=== PATIENT | female | born 1945 | race Caucasian/White ===

== ENCOUNTER 2019-06-07 16:23 | Observation (INO) | payer MEDICARE ==
--- NOTE | 2019-06-07 17:12 | Emergency Department Record ---
History of Present Illness - General Chief Complaint: General Stated Complaint: LOW POTASSIUM Time Seen by Provider: 06/07/19 16:34 Source: Patient Mode of Arrival: Ambulatory Limitations: No limitations - History of Present Illness Initial comments: pt was called by drs office because she had a potassium of 2.9 . she was told to come to the ed. she took potassium before she came. she has no symptoms -: Hour(s) Consistency: Constant Associated Symptoms: Denies other symptoms - [place] Coma Scale Eye Response: (4) Open spontaneously Motor Response: (6) Obeys commands Verbal Response: (5) Oriented [place] Total: 15 - Related Data Home Medications Medication Instructions Recorded Confirmed Last Taken Amlodipine Besylate 5 mg PO DAILY 06/07/19 06/07/19 06/07/19 Calcium Carbonate/Vitamin D3 1 each PO DAILY 06/07/19 06/07/19 06/07/19 [Caltrate 600 Plus D3 Tablet] Ergocalciferol (Vitamin D2) 50,000 unit PO WEEKLY 06/07/19 06/07/19 06/07/19 [Vitamin D2] Hydrochlorothiazide [Hctz] 25 mg PO DAILY 06/07/19 06/07/19 06/07/19 Loratadine 10 mg PO DAILY 06/07/19 06/07/19 06/07/19 Multivitamin/Iron/Folic Acid 1 tab PO DAILY 06/07/19 06/07/19 06/07/19 [Centrum] Potassium Chloride [Klor-Con] 20 meq PO DAILY 06/07/19 06/07/19 06/07/19 Allergies Allergy/AdvReac Type Severity Reaction Status Date / Time lisinopril AdvReac HYPERSENSIT Verified 06/07/19 16:39 IVITY Travel Screening - Travel/Exposure Within Last 30 Days Have you traveled within the last 30 days?: No - Travel/Exposure Within Last Year Have you traveled outside the [place] in the last year?: No - Additonal Travel Details Have you been exposed to anyone with a communicable illness?: No Review of Systems Reviewed: No additional complaints except as noted below Constitutional: Reports: As per HPI. Denies: Chills, Fever, Malaise, Night sweats, Weakness, Weight change Eyes: Reports: As per HPI. Denies: Eye discharge, Eye pain, Photophobia, Vision change ENT: Reports: As per HPI. Denies: Congestion, Dental pain, Ear pain, Epistaxis, Hearing loss, Throat pain Respiratory: Reports: As per HPI. Denies: Cough, Dyspnea, Hemoptysis, Stridor, Wheezes Cardiovascular: Reports: As per HPI. Denies: Arrhythmia, Chest pain, Dyspnea on exertion, Edema, Murmurs, Orthopnea, Palpitations, Paroxysmal nocturnal dyspnea, Rheumatic Fever, Syncope Endocrine: Reports: As per HPI. Denies: Fatigue, Heat or cold intolerance, Polydipsia, Polyuria Gastrointestinal: Reports: As per HPI. Denies: Abdominal pain, Constipation, Diarrhea, Hematemesis, Hematochezia, Melena, Nausea, Vomiting Genitourinary: Reports: As per HPI. Denies: Abnormal menses, Discharge, Dyspareunia, Dysuria, Frequency, Hematuria, Incontinence, Retention, Urgency Musculoskeletal: Reports: As per HPI. Denies: Arthralgia, Back pain, Gout, Joint swelling, Myalgia, Neck pain Skin: Reports: As per HPI. Denies: Bruising, Change in color, Change in hair/nails, Lesions, Pruritus, Rash Neurological: Reports: As per HPI. Denies: Abnormal gait, Confusion, Headache, Numbness, Paresthesias, Seizure, Tingling, Tremors, Vertigo, Weakness Psychiatric: Reports: As per HPI. Denies: Anxiety, Auditory hallucinations, Depression, Homicidal thoughts, Suicidal thoughts, Visual hallucinations Hematological/Lymphatic: Reports: As per HPI. Denies: Anemia, Blood Clots, Easy bleeding, Easy bruising, Swollen glands Past Medical History - SOCIAL HISTORY Smoking Status: Former smoker Alcohol Use: Occasional Alcohol Use Comment: daily 3 glasses wine Drug Use: None - RESPIRATORY Hx Respiratory Disorders: No - CARDIOVASCULAR Hx Cardio Disorders: Yes Hx Hypertension: Yes - NEURO Hx Neuro Disorders: No - GI Hx GI Disorders: No - Hx Genitourinary Disorders: No - ENDOCRINE Hx Endocrine Disorders: No - MUSCULOSKELETAL Hx Musculoskeletal Disorders: No - PSYCH Hx Psych Problems: No - HEMATOLOGY/ONCOLOGY Hx Hematology/Oncology Disorders: No Family Medical History Any Significant Family History?: No Physical Exam - General General Appearance: Alert, Oriented x3, Cooperative, No acute distress - Head Head exam: Normal inspection - Eye Eye exam: Normal appearance, PERRL, EOMI Pupils: Normal accommodation - ENT ENT exam: Normal exam, Mucous membranes moist, Normal external ear exam, Normal orophraynx Ear exam: Normal external inspection. negative: External canal tenderness Nasal Exam: Normal inspection. negative: Discharge, Sinus tenderness Mouth exam: Normal external inspection, Tongue normal Teeth exam: Normal inspection. negative: Dental caries Throat exam: Normal inspection. negative: Tonsillar erythema, Tonsillar exudate - Neck Neck exam: Normal inspection, Full ROM. negative: Tenderness - Respiratory Respiratory exam: Normal lung sounds bilaterally. negative: Respiratory distress - Cardiovascular Cardiovascular Exam: Normal rhythm, Normal heart sounds, Tachycardia - GI/Abdominal GI/Abdominal exam: Soft, Normal bowel sounds. negative: Tenderness - Rectal Rectal exam: Deferred - exam: Deferred - Extremities Extremities exam: Normal inspection, Full ROM, Normal capillary refill. negative: Tenderness - Back Back exam: Reports: Normal inspection, Full ROM. Denies: Muscle spasm, Rash noted, Tenderness - Neurological Neurological exam: Alert, CN II-XII intact, Normal gait, Oriented X3 - Psychiatric Psychiatric exam: Normal affect, Normal mood - Skin Skin exam: Dry, Intact, Normal color, Warm Course Vital Signs 06/07/19 16:29 Temperature 98.1 F Pulse Rate 109 H Respiratory 20 Rate Blood Pressure 173/91 Pulse Ox 99 Medical Decision Making - Lab Data Result diagrams: 06/07/19 17:01 Disposition Disposition: Admit Clinical Impression: Hypokalemia Disposition: Still a Patient at [facility] Decision to Admit: Admit from ER Decision to Admit Date: 06/07/19 Decision to Admit Time: 17:57 Forms: Patient Portal Access Quality - Quality Measures Quality Measures: N/A - Blood Pressure Screening Does Patient Have Any of the Following: Active Dx of HTN Blood Pressure Classification: Hypertensive Reading Systolic Measurement: 173 Diastolic Measurement: 91 Screening for High Blood Pressure: Patient Exclusion, Hx of HTN [G9744]
[2019-06-07 17:20] LABS: BLOOD UREA NITROGEN 3 mg/dL (8-23); CREATININE 0.4 mg/dL (0.5-0.9); EST GLOMERULAR FILTRATION RATE > 60 mL/min
[2019-06-07 17:23] LABS: GLUCOSE,RANDOM 206 mg/dL (74-109)
[2019-06-07] MEDS ORDERED: SOD CHLOR 0.9% WITH KCL 40MEQ 40 MEQ/1,000 ML IV.SOLN IV ONE (17:30)
[2019-06-07] MEDS ORDERED: POTASSIUM CHLORIDE 20 MEQ TABLET PO ONE (17:33)
[2019-06-07] MEDS ORDERED: POTASSIUM CHLORIDE 20 MEQ/15ML CUP PO ONE (17:52)
[2019-06-07] MEDS ORDERED: ACETAMINOPHEN 500 MG TABLET PO PRN (18:25)
[2019-06-07] MEDS ORDERED: FLU VAC QS 2019-20 (INPT, 6MO+) 60MCG/0.5ML IM ONE (18:36)
[2019-06-07] MEDS ORDERED: POTASSIUM CHLORIDE 20 MEQ TABLET PO SCH (22:00)
[2019-06-08] MEDS: SOD CHLOR 0.9% WITH KCL 40MEQ 40 MEQ/1,000 ML IV.SOLN IV SCH ×2 (00:05→05:48)
[2019-06-08 06:49] LABS: BLOOD UREA NITROGEN 2 mg/dL (8-23); CREATININE 0.3 mg/dL (0.5-0.9); EST GLOMERULAR FILTRATION RATE > 60 mL/min; GLUCOSE,RANDOM 100 mg/dL (74-109)
[2019-06-08] MEDS ORDERED: HYDROCHLOROTHIAZIDE 25 MG TABLET PO SCH (10:00)
[2019-06-08] MEDS ORDERED: LORATADINE 10 MG TABLET PO SCH (10:00)
[2019-06-08] MEDS ORDERED: AMLODIPINE BESYLATE 5MG TAB PO SCH (10:00)
--- NOTE | 2019-06-08 11:10 | History & Physical ---
History of Present Illness - Date of Service Date of Service for History & Physical: 06/08/19 - History of Present Illness Admitting Diagnosis: hypokalemia History of Present Illness: 73 yo female presents for hypokalemia secondary to HCTZ. Pt was sent in by PCP for 2.8 K and pt took PO supplement before arrival. Repeat K was 2.5. Pt denied "symptoms" per ER documentation. PMH chronic ankle swelling and HTN. Pt given 40 mEq PO K and infusion of NS/40mEq 1 L. Tele strip at 8pm shows NSR, narrow QRS complex but no peaking T waves. 06/08/19 Pt resting comfortably in chair. Denies CP, shortness of breath, irregular HR/palpations, leg cramps, or tingling. Has tolerated IV infusions, IV site appears PWN, no pain with palpation. Pt is A&ox4. Reports being on HCTZ for approx 1 yr, recent issues with low K and taking 20mEq K for a few months. +2 pitting edema noted to lower calf/ankles but not feet. +3 DP/PT pulses. POC stop HCTZ, stop IVF, repeat K at 1200, take 20mEq K BID x 3 days and then daily after that. Repeat BMP 06/12/19 and PCP follow up within 7 days of d/c. PCP Jeanette Travel Screening - Travel/Exposure Within Last 30 Days Have you traveled within the last 30 days?: No - Travel/Exposure Within Last Year Have you traveled outside the [place] in the last year?: No - Additonal Travel Details Have you been exposed to anyone with a communicable illness?: No - Travel Symptoms Symptom Screening: None Review of Systems Constitutional: Reports: As per HPI. Denies: Chills, Fever, Malaise, Night sweats, Weakness, Weight change Eyes: Reports: As per HPI. Denies: Eye discharge, Eye pain, Photophobia, Vision change ENT: Reports: As per HPI. Denies: Congestion, Dental pain, Ear pain, Epistaxis, Hearing loss, Throat pain Respiratory: Reports: As per HPI. Denies: Cough, Dyspnea, Hemoptysis, Stridor, Wheezes Cardiovascular: Reports: As per HPI. Denies: Arrhythmia, Chest pain, Dyspnea on exertion, Edema, Murmurs, Orthopnea, Palpitations, Paroxysmal nocturnal dyspnea, Rheumatic Fever, Syncope Endocrine: Reports: As per HPI. Denies: Fatigue, Heat or cold intolerance, Polydipsia, Polyuria Gastrointestinal: Reports: As per HPI. Denies: Abdominal pain, Constipation, Diarrhea, Hematemesis, Hematochezia, Melena, Nausea, Vomiting Genitourinary: Reports: As per HPI. Denies: Abnormal menses, Discharge, Dyspareunia, Dysuria, Frequency, Hematuria, Incontinence, Retention, Urgency Musculoskeletal: Reports: As per HPI. Denies: Arthralgia, Back pain, Gout, Joint swelling, Myalgia, Neck pain Skin: Reports: As per HPI. Denies: Bruising, Change in color, Change in hair/nails, Lesions, Pruritus, Rash Neurological: Reports: As per HPI. Denies: Abnormal gait, Confusion, Headache, Numbness, Paresthesias, Seizure, Tingling, Tremors, Vertigo, Weakness Psychiatric: Reports: As per HPI. Denies: Anxiety, Auditory hallucinations, De pression, Homicidal thoughts, Suicidal thoughts, Visual hallucinations Hematological/Lymphatic: Reports: As per HPI. Denies: Anemia, Blood Clots, Easy bleeding, Easy bruising, Swollen glands Past Medical History - SOCIAL HISTORY Smoking Status: Former smoker Alcohol Use Comment: 3 glasses wine daily Drug Use: None - RESPIRATORY Hx Respiratory Disorders: No - CARDIOVASCULAR Hx Cardio Disorders: Yes Hx Hypertension: Yes - NEURO Hx Neuro Disorders: No - GI Hx GI Disorders: No - Hx Genitourinary Disorders: No - ENDOCRINE Hx Endocrine Disorders: No - MUSCULOSKELETAL Hx Musculoskeletal Disorders: No - PSYCH Hx Psych Problems: No - HEMATOLOGY/ONCOLOGY Hx Hematology/Oncology Disorders: No Family Medical History Any Significant Family History?: Yes Hx Cancer: Mother H&P Meds/Allergies - Allergies Allergies: Allergies Allergy/AdvReac Type Severity Reaction Status Date / Time lisinopril AdvReac HYPERSENSIT Verified 06/07/19 16:39 IVITY - Home Medications Home Medications Medication Instructions Recorded Confirmed Last Taken Amlodipine Besylate 5 mg PO DAILY 06/07/19 06/07/19 06/07/19 Calcium Carbonate/Vitamin D3 1 each PO DAILY 06/07/19 06/07/19 06/07/19 [Caltrate 600 Plus D3 Tablet] Ergocalciferol (Vitamin D2) 50,000 unit PO WEEKLY 06/07/19 06/07/1906/07/19 [Vitamin D2] Hydrochlorothiazide [Hctz] 25 mg PO DAILY 06/07/19 06/07/19 06/07/19 Loratadine 10 mg PO DAILY 06/07/19 06/07/19 06/07/19 Multivitamin/Iron/Folic Acid 1 tab PO DAILY 06/07/19 06/07/19 06/07/19 [Centrum] Potassium Chloride [Klor-Con] 20 meq PO DAILY 06/07/19 06/07/19 06/07/19 - Active Medications Active Medications: Current Medications Acetaminophen (Tylenol 500mg Tab) 1,000 mg PO Q6H PRN PRN Reason: PAIN - MILD(1-4)/FEVER Amlodipine Besylate (Norvasc) 5 mg PO DAILY [facility] Last Admin: 06/08/19 10:21 Dose: 5 mg Documented by: Potassium Chloride/Sodium Chloride (Potassium Chl 40meq/) 40 meq in 1,000 mls @ 100 mls/hr IV Q10H [facility] Last Infusion: 06/08/19 10:18 Dose: Infused Documented by: Loratadine (Claritin) 10 mg PO DAILY [facility] Last Admin: 06/08/19 10:21 Dose: 10 mg Documented by: Physical Exam - Vital Signs Vital Signs: Vital Signs - Last 24 Hrs Temp Pulse Pulse Resp BP BP BP 06/08/19 08:52 18 06/08/19 07:18 98.3 F 82 18 140/78 06/08/19 04:00 98.0 F 85 18 124/77 06/08/19 00:25 97.8 F 81 18 116/72 06/07/19 20:32 16 06/07/19 20:25 97.6 F 88 18 137/79 06/07/19 18:45 16 06/07/19 18:33 97 H 18 145/90 06/07/19 18:25 97.5 F L 101 H 18 150/83 06/07/19 18:00 101 H 18 162/91 06/07/19 16:29 98.1 F 109 H 20 173/91 Pulse Ox 06/08/19 08:52 06/08/19 07:18 98 06/08/19 04:00 97 06/08/19 00:25 98 06/07/19 20:32 06/07/19 20:25 99 06/07/19 18:45 06/07/19 18:33 100 06/07/19 18:25 100 06/07/19 18:00 100 06/07/19 16:29 99 - General General Appearance: Alert, Oriented x3, Cooperative, No acute distress Limitations: No limitations - Head Head exam: Normal inspection - Eye Eye exam: Normal appearance, PERRL, EOMI Pupils: Normal accommodation - ENT ENT exam: Normal exam, Mucous membranes moist, Normal external ear exam, Normal orophraynx Ear exam: Normal external inspection. negative: External canal tenderness Nasal Exam: Normal inspection. negative: Discharge, Sinus tenderness Mouth exam: Normal external inspection, Tongue normal Teeth exam: Normal inspection. negative: Dental caries Throat exam: Normal inspection. negative: Tonsillar erythema, Tonsillar exudate - Neck Neck exam: Normal inspection, Full ROM. negative: Tenderness - Respiratory Respiratory exam: Normal lung sounds bilaterally. negative: Respiratory distress - Cardiovascular Cardiovascular Exam: Regular rate, Normal rhythm, Normal heart sounds Peripheral Pulses: 3+: Radial (R), Radial (L), Dorsalis Pedis (R), Dorsalis P grant (L) - GI/Abdominal GI/Abdominal exam: Soft, Normal bowel sounds. negative: Tenderness - Rectal Rectal exam: Deferred - exam: Deferred - Extremities Extremities exam: Full ROM, Normal capillary refill, Pedal edema (+2 pitting edema). negative: Normal inspection, Calf tenderness, Joint swelling, Tenderness - Back Back exam: Reports: Normal inspection, Full ROM. Denies: Muscle spasm, Rash no kadi, Tenderness - Neurological Neurological exam: Alert, CN II-XII intact, Normal gait, Oriented X3 - Psychiatric Psychiatric exam: Normal affect, Normal mood - Skin Skin exam: Dry, Intact, Normal color, Warm Results - Labs Result Diagrams: 06/08/19 06:16 Labs Last 24 Hours: Laboratory Results - last 24 hr 06/07/19 06/08/19 17:01 06:16 Sodium 130 L 141 Potassium 2.5 L* 3.5 Chloride 85 L 102 Carbon Dioxide 29.0 30.0 H Anion Gap 16.0 9.0 BUN 3 L 2 L Creatinine 0.4 L 0.3 L Estimated GFR > 60 > 60 Random Glucose 206 H 100 Calcium 8.9 8.4 L VTE H&P Assessment - Risk for VTE Risk for VTE: Yes Risk Level: Moderate Risk Assessment Date: 06/08/19 Risk Assessment Time: 11:11 VTE Orders Placed or Will Be Placed: No VTE Reason for No Prophylaxis: Not Indicated (pt short stay, less than 24 hours) Plan - Detailed Diagnosis and Plan (1) Hypokalemia Current Visit: Yes Status: Acute Base Code: E87.6 - HYPOKALEMIA Comment: 06/08/19 - K 2.5->3.5 -given 40mEq PO and 1 L NS/40mEq K -repeat K at 1200, instructions to follow based on K result -Stop HCTZ, f/u PCP (2) Leg edema Current Visit: Yes Status: Acute Base Code: R60.0 - LOCALIZED EDEMA Comment: 06/08/19 -pt reports chronic ankle edema, stating edema today is best and gets worse throughout the day -f/u PCP for edema tx, consider changing Norvasc to ARB to decrease potential exacerbation of ankle edema side effect (3) DVT prophylaxis Current Visit: Yes Status: Acute Base Code: Z29.9 - ENCOUNTER FOR PROPHYLACTIC MEASURES, UNSPECIFIED Comment: 06/08/19 -pt in for short stay OBS, no anticoagulation unless needing longer stay -pt to ambulate in room and hallway (4) Full code status Current Visit: Yes Status: Acute Base Code: Z78.9 - OTHER SPECIFIED HEALTH STATUS Comment: 06/08/19 -full code
--- NOTE | 2019-06-08 11:20 | Discharge Summary ---
Providers Discharge Summary Date: 06/08/19 Date of admission: 06/07/19 18:14 Expected Date of Discharge: 06/08/19 Attending physician: FAUSTO ALAS Primary care physician: MERRY REID MD Physical Exam - Vital Signs Vital Signs: Vital Signs - Last 24 Hrs Temp Pulse Pulse Resp BP BP BP 06/08/19 08:52 18 06/08/19 07:18 98.3 F 82 18 140/78 06/08/19 04:00 98.0 F 85 18 124/77 06/08/19 00:25 97.8 F 81 18 116/72 06/07/19 20:32 16 06/07/19 20:25 97.6 F 88 18 137/79 06/07/19 18:45 16 06/07/19 18:33 97 H 18 145/90 06/07/19 18:25 97.5 F L 101 H 18 150/83 06/07/19 18:00 101 H 18 162/91 06/07/19 16:29 98.1 F 109 H 20 173/91 Pulse Ox 06/08/19 08:52 06/08/19 07:18 98 06/08/19 04:00 97 06/08/19 00:25 98 06/07/19 20:32 06/07/19 20:25 99 06/07/19 18:45 06/07/19 18:33 100 06/07/19 18:25 100 06/07/19 18:00 100 06/07/19 16:29 99 - General General Appearance: Alert, Oriented x3, Cooperative, No acute distress Limitations: No limitations - Head Head exam: Normal inspection - Eye Eye exam: Normal appearance, PERRL, EOMI Pupils: Normal accommodation - ENT ENT exam: Normal exam, Mucous membranes moist, Normal external ear exam, Normal orophraynx Ear exam: Normal external inspection. negative: External canal tenderness Nasal Exam: Normal inspection. negative: Discharge, Sinus tenderness Mouth exam: Normal external inspection, Tongue normal Teeth exam: Normal inspection. negative: Dental caries Throat exam: Normal inspection. negative: Tonsillar erythema, Tonsillar exudate - Neck Neck exam: Normal inspection, Full ROM. negative: Tenderness - Respiratory Respiratory exam: Normal lung sounds bilaterally. negative: Respiratory distress - Cardiovascular Cardiovascular Exam: Regular rate, Normal rhythm, Normal heart sounds Peripheral Pulses: 3+: Radial (R), Radial (L), Dorsalis Pedis (R), Dorsalis Pedis (L) - GI/Abdominal GI/Abdominal exam: Soft, Normal bowel sounds. negative: Tenderness - Rectal Rectal exam: Deferred - exam: Deferred - Extremities Extremities exam: Full ROM, Normal capillary refill, Pedal edema (+2 pitting edema). negative: Normal inspection, Calf tenderness, Joint swelling, Tenderness - Back Back exam: Reports: Normal inspection, Full ROM. Denies: Muscle spasm, Rash noted, Tenderness - Neurological Neurological exam: Alert, CN II-XII intact, Normal gait, Oriented X3 - Psychiatric Psychiatric exam: Normal affect, Normal mood - Skin Skin exam: Dry, Intact, Normal color, Warm Hospitalization - Hospitalization Admission Diagnosis: hypokalemia - Problem List/Discharge Diagnosis (1) Hypokalemia Current Visit: Yes Status: Acute Base Code: E87.6 - HYPOKALEMIA Comment: 06/08/19 - K 2.5->3.5 -given 40mEq PO and 1 L NS/40mEq K -repeat K at 1200, instructions to follow based on K result -Stop HCTZ, f/u PCP Repeat afternoon K 3.8, 20mEq BID x3 days, then daily, repeat BMP 06/12/19 and PCP f/u in 1 week (2) Leg edema Current Visit: Yes Status: Acute Base Code: R60.0 - LOCALIZED EDEMA Comment: 06/08/19 -pt reports chronic ankle edema, stating edema today is best and gets worse throughout the day -f/u PCP for edema tx, consider changing Norvasc to ARB to decrease potential exacerbation of ankle edema side effect (3) DVT prophylaxis Current Visit: Yes Status: Acute Base Code: Z29.9 - ENCOUNTER FOR PROPHYLACTIC MEASURES, UNSPECIFIED Comment: 06/08/19 -pt in for short stay OBS, no anticoagulation unless needing longer stay -pt to ambulate in room and hallway (4) Full code status Current Visit: Yes Status: Acute Base Code: Z78.9 - OTHER SPECIFIED HEALTH STATUS Comment: 06/08/19 -full code - Hospitalization Course Abnormal Labs: Abnormal Lab Results 06/07/19 06/08/19 Range/Units 17:01 06:16 Sodium 130 L (136-145) mmol/L Potassium 2.5 L* (3.4-4.5) mmol/L Chloride 85 L (98-107) mmol/L Carbon Dioxide 30.0 H (22-29) mmol/L BUN 3 L 2 L (8-23) mg/dL Creatinine 0.4 L 0.3 L (0.5-0.9) mg/dL Random Glucose 206 H (74-109) mg/dL Calcium 8.4 L (8.8-10.2) mg/dL Discharge Medications - Discharge Medications Home Medications: Ambulatory Orders Calcium Carbonate/Vitamin D3 [Caltrate 600 Plus D3 Tablet] 1 each PO DAILY 06/07/19 [Last Taken 06/07/19] Ergocalciferol (Vitamin D2) [Vitamin D2] 50,000 unit PO WEEKLY 06/07/19 [Last Taken 06/07/19] Loratadine 10 mg PO DAILY 06/07/19 [Last Taken 06/07/19] Multivitamin/Iron/Folic Acid [Centrum] 1 tab PO DAILY 06/07/19 [Last Taken 06/07/19] Potassium Chloride [Klor-Con] 20 meq PO DAILY 06/07/19 [Last Taken 06/07/19] Acetaminophen [Tylenol 500Mg Tab] 1,000 mg PO Q6H PRN tablet 06/08/19 [Last Taken Unknown] Amlodipine Besylate [Norvasc] 5 mg PO DAILY tab 06/08/19 [Last Taken Unknown] Loratadine [Claritin] 10 mg PO DAILY tablet 06/08/19 [Last Taken Unknown] Discharge Plan - Discharge Instructions Activity at Discharge: Increase Activity as Tolerated Diet at Discharge: Advance to Usual Diet Instructions: Hypokalemia (DC) Additional Instructions: Activity: Increase Activity as Tolerated Diet: Advance to Usual Diet Consults: [] Follow Up: [Make an appointment to see Dr. Reid within 1 week of disch arging home Dressing/Wound Care: (Type) (Change) Additional: [] Complete labs on Tuesday 06/12 to re-check your potassium. Orders have been faxed to [facility] in [place]. STOP your hydrochlorothiazide as this is likely the cause of your low potassium. Additionally, please speak with your primary provider as your other blood pre ssure medication Norvasc(amlodipine) has a side effect of ankle swelling. Please discuss this with your provider and collaborate with them about a plan of care to control blood pressure and leg edema while controlling potassium. Take potassium 20meq twice per day for 3 days then daily until you see your primary care physician. Please return to ER for chest pain, difficulty breathing, sensation of irregular heart beat or palpitations, or moderate leg cramps as these can be signs of low potassium or more significant concerns. Quality Measures - Quality Measures Quality Measures: Advance Directives, Documentation of Current Medications in Medical Record, Elder Maltreatment Screen and Follow-Up Plan, Screening for High Blood Pressure and F/U Documented - Current Medications Quality Measure: Measure #130: Documentation of Current Medications Documentation of Current Medications: <Current Medications Documented/Reviewed> [G8002] - Blood Pressure Screening Quality Measure: Screening for High Blood Pressure and Follow-Up Documented Does Patient Have Any of the Following: Active Dx of HTN Blood Pressure Classification: Hypertensive Reading Systolic Measurement: 145 Diastolic Measurement: 90 Screening for High Blood Pressure: Patient Exclusion, Hx of HTN [G9744] - Advance Directives Quality Measure: Measure #47: Care Plan Advance Directives Established: No Advance Directives Information Provided To Patient: No Advance Directives on File: No Living Will: No Power of Aviation [employer] Intelligence: No Advance Care Planning: <Care Plan/Decision Maker Not Decided; Discussed & Documented> [3009F] - Elder Abuse Suspicion Index Screening: Elder Abuse Suspicion Index Screening Rely on people for bathing, dressing, shopping, banking, etc: No Prevented from getting food, clothes, medication, etc: No Made to feel shamed or threatened by someone: No Forced to sign papers or use money against will: No Feel afraid, touched in ways not wanted or hurt physically: No Poor eye contact, withdrawn, malnourished, cuts or bruises: No Screening Result: Negative result EASI Reference Information: Troy ESCOBAR, Clarice C, Arminda D, Huy M.Development and validation of a tool to assist physicians identification of elder abuse: The Elder Abuse Suspicion Index (EASI ). Journal of Elder Abuse and Neglect, 2008; 20 (3): 276-300. - Elder Maltreatment Screen Quality Measures: Elder Maltreatment Screen and Follow-Up Plan Elder Maltreatment Screen: <Negative, No Follow-Up Plan Required> [G8734]
== END 2019-06-08 13:20 | disposition home or self-care (01) ==
LOC: ER 16:23 → MEDSURG 18:14
PROVIDERS: ADMIT Internal Medicine; ATTEND Internal Medicine
DX: E87.6 Hypokalemia (principal); I10 Essential (primary) hypertension; R60.0 Localized edema; Z87.891 Personal history of nicotine dependence; Z29.9 Encounter for prophylactic measures, unspecified; Z23 Encounter for immunization
CPT/HCPCS: 99285 ×2; 96365; 96366; 84132; 80048 ×2; 90686; G0378 ×2; 99220